=== PATIENT | female | born 1965 | race Caucasian/White ===

== ENCOUNTER 2024-01-10 15:53 | Inpatient (IN) | payer OTHER ==
[~2024-01-10] VITALS: Ht 152.4 cm; Wt 102.1 kg
[2024-01-10 15:59] VITALS: BP_SYST 146; PULSE 146; RESP 22; TEMP 98.3; O2SAT 93
[2024-01-10] MEDS ORDERED: IPRATROPIUM/ALBUTEROL SULFATE 3 ML AMPUL.NEB (DUONEB) ONE (16:11)
[2024-01-10] MEDS: IPRATROPIUM/ALBUTEROL SULFATE 3 ML AMPUL.NEB (DUONEB) INH ONE (16:23)
[2024-01-10 16:45] LABS: BASOPHILS % (AUTO) 0.4 % (0.0-2.0); EOSINOPHILS % (AUTO) 0.2 % (0.0-4.0); HEMOGLOBIN 12.9 g/dL (12.0-16.0); LYMPHOCYTES # (AUTO) 1.6 K/uL (1.0-5.5); LYMPHOCYTES % (AUTO) 15.8 % (20.5-51.5); MEAN CORPUSCULAR HEMOGLOBIN 32 pg (27-31); MEAN CORPUSCULAR HGB CONC 34 % (32-36); MEAN CORPUSCULAR VOLUME 93 fL (79.0-98.0); MONOCYTES # (AUTO) 0.9 K/uL (0.0-1.0); MONOCYTES % (AUTO) 8.6 % (1.7-9.3); NEUTROPHILS # (AUTO) 7.6 K/uL (1.8-7.7); PLATELET COUNT (AUTO) 259 K/uL (130-430); RED BLOOD CELL COUNT(AUTO) 4.09 MIL/uL (4.2-6.2); RED CELL DISTRIBUTION WIDTH 15.5 % (9.0-15.0); WHITE BLOOD COUNT (AUTO) 10.1 K/uL (4.8-10.8)
[2024-01-10 16:56] LABS: INR 1.1 (0.8-1.2); PROTHROMBIN TIME 11.6 SECS (9.5-12.5)
[2024-01-10 17:35] LABS: ALBUMIN 2.5 g/dL (3.4-4.8); ANION GAP 13 (5-15); ASPARTATE AMINOTRANSFERASE 43 U/L (10-37); BILIRUBIN,DIRECT 0.3 mg/dL (0.0-0.3); CALCIUM 8.7 mg/dL (8.4-11.0); CARBON DIOXIDE 24 mmol/L (23-29); CHLORIDE 103 mmol/L (98-107); CREATINE KINASE, TOTAL 33 U/L (26-192); GFR AFRICAN AMERICAN 95 mL/min (>90); GLUCOSE 127 mg/dL (74-106); LIPASE 57 U/L (16-77); SODIUM SERUM 140 mmol/L (136-145); TOTAL PROTEIN, SERUM 6.5 g/dL (6.4-8.3); UREA NITROGEN, BLOOD 8 mg/dL (8-21)
[2024-01-10 17:38] LABS: GFR NON AFRICAN-AMERICAN 78 mL/min (>90)
[2024-01-10 17:50] LABS: ALANINE AMINOTRANSFERASE 30 U/L (12-78)
[2024-01-10 17:51] LABS: POTASSIUM 2.9 mmol/L (3.5-5.1)
[2024-01-10] MEDS: ONDANSETRON HCL 4 MG/2 ML VIAL IVP ONE (17:55)
[2024-01-10] MEDS: KETOROLAC TROMETHAMINE 30 MG VIAL IVP ONE (17:55)
[2024-01-10] MEDS: NACL 0.9% 1,000 ML IV ONE (18:03)
[2024-01-10 18:21] LABS: COVID19 ANTIGEN SOFIA FIA NEGATIVE (NEGATIVE); INFLUENZA TYPE A Negative (NEGATIVE); INFLUENZA TYPE B NEGATIVE (NEGATIVE)
[2024-01-10] MEDS ORDERED: KCL IV ONE (18:35)
[2024-01-10] MEDS ORDERED: KCL 20 mEq in 100 mL (PREMIX) 200 ML IV ONE (18:38)
[2024-01-10] MEDS: KCL 40 mEq in 100 mL (PREMIX) 100 ML IV ONE (18:53)
[2024-01-10] MEDS: METOCLOPRAMIDE HCL 10 MG/2 ML VIAL IVP ONE (20:36)
[2024-01-10] MEDS: FAMOTIDINE PF 20 MG/2 ML VIAL IVP ONE (20:36)
[2024-01-10 23:30] VITALS: BP_SYST 153; PULSE 113; O2SAT 96
[2024-01-10] MEDS ORDERED: cefTRIAXone 1 GM VIAL ONE (23:43)
[2024-01-10] MEDS ORDERED: AZITHROMYCIN 500 MG/VIAL (ZITHROMAX) IV ONE (23:44)
[2024-01-10 23:45] VITALS: O2SAT 96
[2024-01-10] MEDS: AZITHROMYCIN 500 MG in NS 250 ML IV SCH (23:49)
[2024-01-10] MEDS: cefTRIAXone 1 GM in D5W 50 ML IV SCH (23:49)
[2024-01-10] MEDS: IPRATROPIUM/ALBUTEROL SULFATE 3 ML AMPUL.NEB (DUONEB) INH SCH (23:52)
[2024-01-11] VITALS (8 sets, daily range): BP systolic 130–147; PULSE 82–108; RESP 16–26; TEMP 96.8–98.2; O2SAT 94–99
[2024-01-11] MEDS: ENOXAPARIN SODIUM 40 MG/0.4 ML SYRINGE SUBCUT ONE (00:06)
[2024-01-11] MEDS: ENOXAPARIN SODIUM 60 MG/0.6 ML SYRINGE SUBCUT ONE (00:56)
[2024-01-11 04:44] LABS: BASOPHILS % (AUTO) 0.1 % (0.0-2.0); EOSINOPHILS % (AUTO) 0.2 % (0.0-4.0); HEMATOCRIT 33.3 % (36-48); HEMOGLOBIN 11.1 g/dL (12.0-16.0); LYMPHOCYTES # (AUTO) 1.9 K/uL (1.0-5.5); LYMPHOCYTES % (AUTO) 23.3 % (20.5-51.5); MEAN CORPUSCULAR HEMOGLOBIN 32 pg (27-31); MEAN CORPUSCULAR HGB CONC 33 % (32-36); MEAN CORPUSCULAR VOLUME 95 fL (79.0-98.0); MONOCYTES # (AUTO) 0.9 K/uL (0.0-1.0); NEUTROPHILS # (AUTO) 5.4 K/uL (1.8-7.7); NEUTROPHILS % (AUTO) 65.4 % (40.0-70.0); PLATELET COUNT (AUTO) 230 K/uL (130-430); RED CELL DISTRIBUTION WIDTH 15.9 % (9.0-15.0); WHITE BLOOD COUNT (AUTO) 8.2 K/uL (4.8-10.8)
[2024-01-11 04:57] LABS: CALCIUM 7.9 mg/dL (8.4-11.0); CREATININE 0.67 mg/dL (0.55-1.30); FREE T4 (FREE THYROXINE) 1.5 ng/dL (0.6-1.6); POTASSIUM 3.3 mmol/L (3.5-5.1); THYROID STIMULATING HORMONE 1.94 uIu/mL (0.34-4.82); TOTAL BILIRUBIN 0.6 mg/dL (0.0-1.0); TOTAL PROTEIN, SERUM 5.5 g/dL (6.4-8.3)
[2024-01-11] MEDS ORDERED: FURO20TA4 PO (07:06)
[2024-01-11] MEDS ORDERED: DULO20CA19 PO (07:06)
[2024-01-11] MEDS ORDERED: METF-381 PO (07:06)
[2024-01-11] MEDS ORDERED: ATOR20TA64 PO (07:06)
[2024-01-11] MEDS ORDERED: EMPA25TA PO (07:06)
[2024-01-11] MEDS ORDERED: CHLO25TA2 PO (07:06)
[2024-01-11] MEDS ORDERED: LOSA1TAB43 PO (07:06)
[2024-01-11] MEDS ORDERED: iohexoL 350 mgI/mL, 100 ML INFUS..BTL IV ONE (08:00)
[2024-01-11] MEDS: FAMOTIDINE PF 20 MG/2 ML VIAL IVP SCH (08:07)
[2024-01-11] MEDS ORDERED: METF-380 PO (08:40)
[2024-01-11] MEDS ORDERED: LOSA25TA18 PO (08:40)
[2024-01-11] MEDS ORDERED: LAMO200T9 PO (08:40)
[2024-01-11] MEDS ORDERED: TRAZ150T77 PO (08:40)
[2024-01-11] MEDS ORDERED: OLAN10TA32 PO (08:40)
[2024-01-11] MEDS ORDERED: PRAZ1CAP5 PO (08:40)
[2024-01-11] MEDS ORDERED: NAPR-690 PO (08:40)
[2024-01-11] MEDS ORDERED: VENL150C53 PO (08:40)
[2024-01-11] MEDS ORDERED: LAMO100T2 PO (08:40)
[2024-01-11] MEDS ORDERED: HALO5TAB PO (08:40)
[2024-01-11] MEDS ORDERED: LEVO25CA4 PO (08:40)
[2024-01-11] MEDS ORDERED: FERR325T30 PO (08:40)
[2024-01-11] MEDS ORDERED: DICL100G60 TP (08:40)
[2024-01-11] MEDS ORDERED: INSU100I24 SQ (08:40)
[2024-01-11] MEDS ORDERED: ONDA4TAB5 PO (08:40)
[2024-01-11] MEDS ORDERED: ALBMDI INH (08:40)
[2024-01-11] MEDS ORDERED: VITD2000 PO (08:40)
[2024-01-11] MEDS ORDERED: CLON0.1T PO (08:40)
[2024-01-11] MEDS ORDERED: DAPA10TA7 PO (08:40)
[2024-01-11] MEDS ORDERED: SIMV-345 PO (08:40)
[2024-01-11] MEDS ORDERED: LITH150C PO (08:40)
[2024-01-11] MEDS ORDERED: DOCU-156 PO (08:40)
[2024-01-11] MEDS ORDERED: ASPI-524 PO (08:40)
[2024-01-11] MEDS: ONDANSETRON HCL 4 MG/2 ML VIAL IVP PRN (10:14)
[2024-01-11] MEDS: ACETAMINOPHEN 325 MG TABLET PO PRN (10:15)
[2024-01-11] MEDS: ENOXAPARIN SODIUM 40 MG/0.4 ML SYRINGE SUBCUT SCH (14:00)
[2024-01-11] MEDS ORDERED: ACETAMINOPHEN 325 MG TABLET PO PRN (16:30)
[2024-01-11] MEDS: POTASSIUM CHLORIDE 20 MEQ TABLET.ER PO ONE (18:04)
[2024-01-11] MEDS: CYANOCOBALAMIN (VITAMIN B-12) 1,000 MCG TABLET PO ONE (18:04)
[2024-01-11] MEDS: traMADol HCL HCL 50 MG TABLET (ULTRAM) PO PRN (18:05)
[2024-01-11] MEDS ORDERED: ENOXAPARIN SODIUM 40 MG/0.4 ML SYRINGE SUBCUT SCH ×2 (21:00)
[2024-01-11] MEDS: APIXABAN 2.5 MG TABLET PO SCH (21:08)
[2024-01-11] MEDS: LACTOBACILLUS RHAMNOSUS GG 1 CAP CAPSULE PO SCH (21:09)
[2024-01-11] MEDS: ASCORBIC ACID 500 MG TABLET PO SCH (21:09)
[2024-01-11] MEDS: POTASSIUM CHLORIDE 20 MEQ TABLET.ER PO SCH (21:09)
[2024-01-12] VITALS (8 sets, daily range): BP systolic 126–147; PULSE 105–119; RESP 16–20; TEMP 97.3–98.8; O2SAT 93–97
[2024-01-12 06:08] LABS: BASOPHILS % (AUTO) 0.1 % (0.0-2.0); EOSINOPHILS # (AUTO) 0.1 K/uL (0.0-0.4); EOSINOPHILS % (AUTO) 1.6 % (0.0-4.0); HEMATOCRIT 32.4 % (36-48); HEMOGLOBIN 10.8 g/dL (12.0-16.0); LYMPHOCYTES # (AUTO) 1.8 K/uL (1.0-5.5); LYMPHOCYTES % (AUTO) 29.7 % (20.5-51.5); MEAN CORPUSCULAR HEMOGLOBIN 32 pg (27-31); MEAN CORPUSCULAR HGB CONC 33 % (32-36); MEAN CORPUSCULAR VOLUME 96 fL (79.0-98.0); MONOCYTES # (AUTO) 0.7 K/uL (0.0-1.0); NEUTROPHILS # (AUTO) 3.4 K/uL (1.8-7.7); NEUTROPHILS % (AUTO) 56.6 % (40.0-70.0); PLATELET COUNT (AUTO) 244 K/uL (130-430); RED BLOOD CELL COUNT(AUTO) 3.38 MIL/uL (4.2-6.2); WHITE BLOOD COUNT (AUTO) 6.1 K/uL (4.8-10.8)
[2024-01-12 06:42] LABS: CALCIUM 8.2 mg/dL (8.4-11.0); CREATININE 0.63 mg/dL (0.55-1.30); POTASSIUM 3.7 mmol/L (3.5-5.1)
[2024-01-12] MEDS: CYANOCOBALAMIN (VITAMIN B-12) 1,000 MCG TABLET PO SCH (09:27)
[2024-01-12] MEDS: MULTIVITS,CA,MINERALS/IRON/FA 1 TABLET PO SCH (09:31)
[2024-01-12 10:09] LABS: BILIRUBIN,URINE NEGATIVE (NEGATIVE); BLOOD, URINE NEGATIVE (NEGATIVE); CLARITY/URINE CLEAR (CLEAR); COLOR,URINE YELLOW (YELLOW); GLUCOSE,URINE NEGATIVE (NEGATIVE); KETONES,URINE TRACE (NEGATIVE); LEUKOCYTE ESTERASE ,URINE TRACE (NEGATIVE); NITRITE, URINE NEGATIVE (NEGATIVE); PROTEIN URINE TRACE (NEGATIVE); UROBILINOGEN,URINE 0.2 (0.2-1.0)
[2024-01-12 10:37] LABS: BACTERIA,URINE None Seen /HPF (None Seen); RBC,URINE 0-3 /HPF (0-3); WBC,URINE 0-3 /HPF (0-3); YEAST,URINE Rare /HPF (None Seen)
[2024-01-12] MEDS: IPRATROPIUM/ALBUTEROL SULFATE 3 ML AMPUL.NEB (DUONEB) INH SCH (15:23)
[2024-01-12] MEDS: MAGNESIUM SULFATE 50 ML IV ONE (18:08)
[2024-01-12] MEDS: CHOLECALCIFEROL (VITAMIN D3) 2,000 UNIT TABLET PO ONE (18:08)
[2024-01-12] MEDS: ENOXAPARIN SODIUM 100 MG/ML SYRINGE SUBCUT SCH (21:14)
[2024-01-13] VITALS (12 sets, daily range): BP systolic 124–142; PULSE 100–120; RESP 18; TEMP 97.9–98.8; O2SAT 94–97
[2024-01-13 04:08] LABS: BASOPHILS % (AUTO) 0.2 % (0.0-2.0); EOSINOPHILS # (AUTO) 0.1 K/uL (0.0-0.4); EOSINOPHILS % (AUTO) 1.4 % (0.0-4.0); HEMATOCRIT 33.8 % (36-48); HEMOGLOBIN 11.3 g/dL (12.0-16.0); LYMPHOCYTES # (AUTO) 1.9 K/uL (1.0-5.5); LYMPHOCYTES % (AUTO) 31.8 % (20.5-51.5); MEAN CORPUSCULAR HEMOGLOBIN 32 pg (27-31); MEAN CORPUSCULAR HGB CONC 33 % (32-36); MEAN CORPUSCULAR VOLUME 95 fL (79.0-98.0); MONOCYTES # (AUTO) 0.6 K/uL (0.0-1.0); MONOCYTES % (AUTO) 10.7 % (1.7-9.3); NEUTROPHILS # (AUTO) 3.3 K/uL (1.8-7.7); NEUTROPHILS % (AUTO) 55.9 % (40.0-70.0); PLATELET COUNT (AUTO) 272 K/uL (130-430); RED BLOOD CELL COUNT(AUTO) 3.56 MIL/uL (4.2-6.2); RED CELL DISTRIBUTION WIDTH 16.2 % (9.0-15.0); WHITE BLOOD COUNT (AUTO) 5.9 K/uL (4.8-10.8)
[2024-01-13 04:37] LABS: ALBUMIN 2.1 g/dL (3.4-4.8); CALCIUM 8.2 mg/dL (8.4-11.0); CREATININE 0.62 mg/dL (0.55-1.30); POTASSIUM 3.9 mmol/L (3.5-5.1); TOTAL BILIRUBIN 0.5 mg/dL (0.0-1.0); TOTAL PROTEIN, SERUM 5.8 g/dL (6.4-8.3)
[2024-01-13] MEDS: CHOLECALCIFEROL (VITAMIN D3) 2,000 UNIT TABLET PO SCH (10:57)
[2024-01-13] MEDS ORDERED: DOXY100C5 PO (18:10)
[2024-01-13] MEDS ORDERED: APIX5TAB4 PO (18:11)
[2024-01-13] MEDS: APIXABAN 2.5 MG TABLET PO SCH (21:12)
[2024-01-14] VITALS (9 sets, daily range): BP systolic 120–151; PULSE 101–118; RESP 15–20; TEMP 97.1–98.1; O2SAT 95–100
[2024-01-14] MEDS ORDERED: APIX5TAB4 PO (16:38)
== END 2024-01-14 20:07 | disposition home health service (06) | DRG 202 ==
LOC: SED 15:53 → STU 19:35
PROVIDERS: ADMIT Internal Medicine; ATTEND Internal Medicine
DX: J20.9 Acute bronchitis, unspecified (principal); E43 Unspecified severe protein-calorie malnutrition; I82.432 Acute embolism and thrombosis of left popliteal vein; Z68.41 Body mass index [BMI] 40.0-44.9, adult; J98.11 Atelectasis; E11.9 Type 2 diabetes mellitus without complications; E87.6 Hypokalemia; E83.51 Hypocalcemia; Z20.822 Contact with and (suspected) exposure to COVID-19; M17.11 Unilateral primary osteoarthritis, right knee; E04.1 Nontoxic single thyroid nodule; D35.02 Benign neoplasm of left adrenal gland; I10 Essential (primary) hypertension; E66.01 Morbid (severe) obesity due to excess calories; Z98.84 Bariatric surgery status; Z79.01 Long term (current) use of anticoagulants
CPT/HCPCS: 36415; 71045; 71250-TC; 71275; 76705; 78226; 80048; 80053; 80061; 80076; 81000; 81001; 81015; 82550; 82948; 83037; 83605; 83690; 83735; 83880; 84439; 84443; 84484; 85025; 85379; 85610; 85730; 87086; 93005; 93306; 93970; 94640; 94760; 97110-GP; 97116-GP; 97530-GP; 99285; A9537; G0378; J0456; J0696; J1650; J1885; J2405; J2765; J3475; J3480; J3490; J7050; J7060; Q9967

== ENCOUNTER 2024-01-19 18:01 | Emergency (ER) | payer OTHER ==
[~2024-01-19] VITALS: Ht 152.4 cm; Wt 101.6 kg
[~2024-01-19 18:01] MED LIST: APIX5TAB4 PO; ATOR20TA64 PO; DOXY100C5 PO
[2024-01-19 18:38] VITALS: BP_SYST 144; PULSE 90; RESP 16; TEMP 98.2; O2SAT 97
[2024-01-19] MEDS: ACETAMINOPHEN 500 MG TABLET PO ONE (19:32)
[2024-01-19] MEDS ORDERED: DICL20GE TP (20:54)
[2024-01-19] MEDS ORDERED: IBUP-1969 PO (20:54)
[2024-01-19] MEDS: KETOROLAC TROMETHAMINE 30 MG VIAL IM ONE (21:22)
[2024-01-19 21:29] VITALS: BP_SYST 126; PULSE 82; RESP 18; TEMP 98.2; O2SAT 97
== END 2024-01-19 21:29 | disposition home or self-care (01) ==
LOC: SED 18:01
DX: S16.1XXA Strain of muscle, fascia and tendon at neck level, initial encounter (principal); R51.9 Headache, unspecified; E04.1 Nontoxic single thyroid nodule; I10 Essential (primary) hypertension; E11.9 Type 2 diabetes mellitus without complications; Z79.899 Other long term (current) drug therapy; V89.2XXA Person injured in unspecified motor-vehicle accident, traffic, initial encounter; Y93.89 Activity, other specified; Y92.89 Other specified places as the place of occurrence of the external cause; Y99.8 Other external cause status
CPT/HCPCS: 99285; 70450; 93005; 72125; 96372; J1885

== ENCOUNTER 2024-02-03 12:07 | Inpatient (IN) | payer OTHER ==
[~2024-02-03] VITALS: Ht 152.4 cm; Wt 99.8 kg
[~2024-02-03 12:07] MED LIST changes: +DICL20GE TP; +IBUP-1969 PO
[2024-02-03 12:22] VITALS: BP_SYST 163; PULSE 112; RESP 18; TEMP 98.3; O2SAT 96
[2024-02-03 13:40] LABS: BASOPHILS % (AUTO) 0.3 % (0.0-2.0); EOSINOPHILS # (AUTO) 0.1 K/uL (0.0-0.4); EOSINOPHILS % (AUTO) 2.9 % (0.0-4.0); HEMATOCRIT 36.1 % (36-48); HEMOGLOBIN 12.1 g/dL (12.0-16.0); LYMPHOCYTES # (AUTO) 1.3 K/uL (1.0-5.5); LYMPHOCYTES % (AUTO) 37.3 % (20.5-51.5); MEAN CORPUSCULAR HEMOGLOBIN 33 pg (27-31); MEAN CORPUSCULAR HGB CONC 34 % (32-36); MEAN CORPUSCULAR VOLUME 97 fL (79.0-98.0); MONOCYTES # (AUTO) 0.3 K/uL (0.0-1.0); MONOCYTES % (AUTO) 9.3 % (1.7-9.3); NEUTROPHILS # (AUTO) 1.8 K/uL (1.8-7.7); NEUTROPHILS % (AUTO) 50.2 % (40.0-70.0); PLATELET COUNT (AUTO) 157 K/uL (130-430); RED BLOOD CELL COUNT(AUTO) 3.71 MIL/uL (4.2-6.2); RED CELL DISTRIBUTION WIDTH 15.5 % (9.0-15.0); WHITE BLOOD COUNT (AUTO) 3.6 K/uL (4.8-10.8)
[2024-02-03 13:57] LABS: ALANINE AMINOTRANSFERASE 31 U/L (12-78); ALBUMIN 2.7 g/dL (3.4-4.8); ANION GAP 8 (5-15); ASPARTATE AMINOTRANSFERASE 48 U/L (10-37); BILIRUBIN,DIRECT 0.2 mg/dL (0.0-0.3); CALCIUM 8.8 mg/dL (8.4-11.0); CARBON DIOXIDE 28 mmol/L (23-29); CHLORIDE 110 mmol/L (98-107); CREATININE 0.76 mg/dL (0.55-1.30); GFR AFRICAN AMERICAN 101 mL/min (>90); GLUCOSE 120 mg/dL (74-106); POTASSIUM 3.2 mmol/L (3.5-5.1); SODIUM SERUM 146 mmol/L (136-145); TOTAL BILIRUBIN 0.6 mg/dL (0.0-1.0); TOTAL PROTEIN, SERUM 6.2 g/dL (6.4-8.3); UREA NITROGEN, BLOOD 6 mg/dL (8-21)
[2024-02-03 14:00] LABS: GFR NON AFRICAN-AMERICAN 83 mL/min (>90)
[2024-02-03] MEDS ORDERED: iohexoL 350 mgI/mL, 100 ML INFUS..BTL IV ONE (16:22)
[2024-02-03] MEDS ORDERED: DEXTROSE 50% JECT 50 ML DISP.SYRIN IVP PRN (18:15)
[2024-02-03] MEDS ORDERED: INSULIN REGULAR, HUMAN 100 UNITS/ML, 3 ML VIAL (humuLIN R) SUBCUT PRN (18:15)
[2024-02-03] MEDS: POTASSIUM CHLORIDE 40 MEQ in NS 250 ML IV ONE (19:30)
[2024-02-03 20:05] LABS: BILIRUBIN,URINE NEGATIVE (NEGATIVE); BLOOD, URINE NEGATIVE (NEGATIVE); CLARITY/URINE CLEAR (CLEAR); COLOR,URINE YELLOW (YELLOW); GLUCOSE,URINE NEGATIVE (NEGATIVE); KETONES,URINE TRACE (NEGATIVE); LEUKOCYTE ESTERASE ,URINE NEGATIVE (NEGATIVE); NITRITE, URINE NEGATIVE (NEGATIVE); PH,URINE 7.5 (5.0-8.0); PROTEIN URINE NEGATIVE (NEGATIVE); UROBILINOGEN,URINE 0.2 (0.2-1.0)
[2024-02-03] MEDS ORDERED: CHLO25TA2 PO (20:28)
[2024-02-03] MEDS ORDERED: METF-381 PO (20:28)
[2024-02-03] MEDS ORDERED: IBUP-1969 PO (20:28)
[2024-02-03] MEDS ORDERED: APIX5TAB PO (20:28)
[2024-02-03] MEDS: metFORMIN HCL 500 MG TABLET PO SCH (21:00)
[2024-02-03] MEDS ORDERED: EMPA25TA PO (21:18)
[2024-02-03] MEDS ORDERED: FURO-150 PO (21:18)
[2024-02-03] MEDS ORDERED: LOSA1TAB43 PO (21:18)
[2024-02-03] MEDS ORDERED: LIP20 PO (21:18)
[2024-02-03 21:43] VITALS: BP_SYST 127; PULSE 83; RESP 18; TEMP 97.9
[2024-02-04 06:47] LABS: HEMATOCRIT 33.2 % (36-48); HEMOGLOBIN 11.1 g/dL (12.0-16.0); MEAN CORPUSCULAR HEMOGLOBIN 32 pg (27-31); MEAN CORPUSCULAR HGB CONC 33 % (32-36); MEAN CORPUSCULAR VOLUME 97 fL (79.0-98.0); PLATELET COUNT (AUTO) 154 K/uL (130-430); RED BLOOD CELL COUNT(AUTO) 3.42 MIL/uL (4.2-6.2); RED CELL DISTRIBUTION WIDTH 15.8 % (9.0-15.0); WHITE BLOOD COUNT (AUTO) 2.9 K/uL (4.8-10.8)
[2024-02-04 06:59] LABS: ALBUMIN 2.3 g/dL (3.4-4.8); CALCIUM 8.7 mg/dL (8.4-11.0); CREATININE 0.57 mg/dL (0.55-1.30); PHOSPHORUS 3.7 mg/dL (2.7-4.5); POTASSIUM 3.4 mmol/L (3.5-5.1); THYROID STIMULATING HORMONE 4.15 uIu/mL (0.34-4.82); TOTAL BILIRUBIN 0.8 mg/dL (0.0-1.0); TOTAL PROTEIN, SERUM 5.4 g/dL (6.4-8.3)
[2024-02-04 07:51] VITALS: BP_SYST 156; PULSE 80; RESP 18; TEMP 98.1; O2SAT 97
[2024-02-04 07:54] LABS: EOSINOPHILS % (MANUAL) 5 % (0-7); LYMPHOCYTES % (MANUAL) 42 % (20-46); MONOCYTES % (MANUAL) 10 % (0-11)
[2024-02-04 07:55] LABS: BASOPHILS % (MANUAL) 0 % (0-2); PLATELET ESTIMATE ADEQUATE (ADEQUATE)
[2024-02-04 08:20] VITALS: O2SAT 97
[2024-02-04] MEDS: cloNIDine HCL 0.1 MG TABLET PO PRN (09:23)
[2024-02-04] MEDS: ATORVASTATIN 20 MG TABLET PO SCH (09:24)
[2024-02-04] MEDS: LOSARTAN POTASSIUM 50 MG TABLET (COZAAR) PO SCH (09:24)
[2024-02-04] MEDS: APIXABAN 2.5 MG TABLET PO SCH (09:25)
[2024-02-04] MEDS: CHLORTHALIDONE 25 MG TABLET (HYGROTON) PO SCH (09:26)
[2024-02-04] MEDS: POTASSIUM CHLORIDE 20 MEQ TABLET.ER PO ONE (11:30)
[2024-02-04 13:00] VITALS: BP_SYST 97; PULSE 89; RESP 16; TEMP 97.7; O2SAT 95
[2024-02-04 16:05] VITALS: BP_SYST 107; PULSE 79; RESP 17; TEMP 97.7; O2SAT 98
[2024-02-04 20:00] VITALS: BP_SYST 127; PULSE 83; RESP 18; TEMP 97.9; O2SAT 98
[2024-02-05] VITALS (8 sets, daily range): BP systolic 112–130; PULSE 63–89; RESP 16–18; TEMP 97.7–98.4; O2SAT 93–99
[2024-02-05 05:23] LABS: CALCIUM 8.6 mg/dL (8.4-11.0); CREATININE 0.57 mg/dL (0.55-1.30); POTASSIUM 3.6 mmol/L (3.5-5.1)
[2024-02-05 05:24] LABS: HEMATOCRIT 32.4 % (36-48); HEMOGLOBIN 10.8 g/dL (12.0-16.0); MEAN CORPUSCULAR HEMOGLOBIN 33 pg (27-31); MEAN CORPUSCULAR HGB CONC 33 % (32-36); MEAN CORPUSCULAR VOLUME 98 fL (79.0-98.0); PLATELET COUNT (AUTO) 166 K/uL (130-430); RED BLOOD CELL COUNT(AUTO) 3.29 MIL/uL (4.2-6.2); RED CELL DISTRIBUTION WIDTH 15.5 % (9.0-15.0); WHITE BLOOD COUNT (AUTO) 3.4 K/uL (4.8-10.8)
[2024-02-05 07:06] LABS: BASOPHILS % (MANUAL) 0 % (0-2); EOSINOPHILS % (MANUAL) 7 % (0-7); LYMPHOCYTES % (MANUAL) 57 % (20-46); MONOCYTES % (MANUAL) 9 % (0-11)
[2024-02-05 07:07] LABS: PLATELET ESTIMATE ADEQUATE (ADEQUATE)
[2024-02-05] MEDS: CARVEDILOL 6.25 MG TABLET (COREG) PO SCH (21:25)
[2024-02-06 06:28] LABS: CALCIUM 8.3 mg/dL (8.4-11.0); CREATININE 0.78 mg/dL (0.55-1.30); POTASSIUM 3.5 mmol/L (3.5-5.1)
[2024-02-06 06:31] LABS: BASOPHILS % (AUTO) 0.2 % (0.0-2.0); EOSINOPHILS # (AUTO) 0.2 K/uL (0.0-0.4); EOSINOPHILS % (AUTO) 5.5 % (0.0-4.0); HEMATOCRIT 32.9 % (36-48); HEMOGLOBIN 10.9 g/dL (12.0-16.0); LYMPHOCYTES # (AUTO) 1.5 K/uL (1.0-5.5); LYMPHOCYTES % (AUTO) 48.9 % (20.5-51.5); MEAN CORPUSCULAR HEMOGLOBIN 33 pg (27-31); MEAN CORPUSCULAR HGB CONC 33 % (32-36); MEAN CORPUSCULAR VOLUME 98 fL (79.0-98.0); MONOCYTES # (AUTO) 0.3 K/uL (0.0-1.0); MONOCYTES % (AUTO) 8.6 % (1.7-9.3); NEUTROPHILS # (AUTO) 1.2 K/uL (1.8-7.7); NEUTROPHILS % (AUTO) 36.8 % (40.0-70.0); PLATELET COUNT (AUTO) 149 K/uL (130-430); RED BLOOD CELL COUNT(AUTO) 3.36 MIL/uL (4.2-6.2); RED CELL DISTRIBUTION WIDTH 15.5 % (9.0-15.0); WHITE BLOOD COUNT (AUTO) 3.1 K/uL (4.8-10.8)
[2024-02-06 08:00] VITALS: BP_SYST 110; PULSE 80; RESP 16; TEMP 98.2; O2SAT 80; O2SAT 97
[2024-02-06 09:58] VITALS: BP_SYST 110; PULSE 80; RESP 16; TEMP 98.2
== END 2024-02-06 10:50 | disposition home or self-care (01) | DRG 77 ==
LOC: SED 12:07 → STU 17:27 → SMU 02-05 23:32
PROVIDERS: ADMIT Internal Medicine; ATTEND Internal Medicine
DX: I67.4 Hypertensive encephalopathy (principal); E43 Unspecified severe protein-calorie malnutrition; Z68.41 Body mass index [BMI] 40.0-44.9, adult; I16.0 Hypertensive urgency; I10 Essential (primary) hypertension; E66.01 Morbid (severe) obesity due to excess calories; E11.9 Type 2 diabetes mellitus without complications; E83.51 Hypocalcemia; K80.20 Calculus of gallbladder without cholecystitis without obstruction; D35.02 Benign neoplasm of left adrenal gland; Z86.718 Personal history of other venous thrombosis and embolism; Z98.84 Bariatric surgery status; Z79.899 Other long term (current) drug therapy
CPT/HCPCS: 36415; 70450-TC; 70496; 70498; 70551; 71045; 80048; 80053; 80061; 80076; 81001; 81003; 82140; 82948; 83037; 83735; 83880; 84100; 84439; 84443; 84484; 85007; 85025; 85027; 87081; 92523; 93005; 95816; 97110-GP; 97116-GP; 97530-GP; 99285; G0378; J1815; J3480; J7050; Q9967